=== PATIENT | male | born 1965 | race Caucasian/White ===

== ENCOUNTER 2018-02-08 18:17 | Emergency (ER) | payer OTHER ==
[~2018-02-08] VITALS: Ht 172.7 cm; Wt 81.6 kg
[2018-02-08] MEDS ORDERED: HYDROCHLOROTH12.5 M1 (18:54)
[2018-02-08] MEDS ORDERED: [UNRECOGNIZED DRUG - OTHER] (18:54)
== END 2018-02-08 20:27 | disposition home or self-care (01) ==
LOC: ER 18:17
DX: L03.012 Cellulitis of left finger (principal)